=== PATIENT | female | born 1945 | race Caucasian/White ===

== ENCOUNTER 2017-03-27 04:27 | Emergency (ER) | payer MEDICARE, OTHER, MEDICAID ==
[~2017-03-27] VITALS: Ht 147.3 cm; Wt 77.2 kg
[~2017-03-27 04:27] MED LIST: DIAZ2TAB3 PO; LOPE-144 PO; MAGN296S50 PO; PANT20TA3 PO
[2017-03-27] MEDS ORDERED: ondansetron/PF 4mg/2ml inj IV ONE (05:15)
[2017-03-27] MEDS ORDERED: normal saline 1000ML IV soln IVB ONE (05:15)
[2017-03-27 05:24] LABS: BASOPHILS % (AUTO) 0.2 % (0-1); EOSINOPHILS # (AUTO) 0.1 X10'3 (0-0.9); HEMATOCRIT 39.8 % (35.0-45.0); HEMOGLOBIN 13.4 g/dl (12.0-16.0); LYMPHOCYTES # (AUTO) 1.3 X10'3 (1.1-4.8); LYMPHOCYTES % (AUTO) 13.1 % (21-51); MEAN CORPUSCULAR HGB CONC 33.8 % (33.0-36.5); MEAN CORPUSCULAR VOLUME 91.9 FL (78-98); MEAN PLATELET VOLUME 9.3 FL (7.4-10.4); MONOCYTES # (AUTO) 0.6 X10'3 (0-0.9); MONOCYTES % (AUTO) 5.5 % (2-12); NEUTROPHILS # (AUTO) 8.2 X10'3 (1.8-7.7); NEUTROPHILS % (AUTO) 80.2 % (42-75); PLATELET COUNT 208 X10'3 (140-440); RED BLOOD COUNT 4.33 X10'6 (4.20-5.60); RED CELL DISTRIBUTION WIDTH 13.3 % (11.5-14.5); WHITE BLOOD COUNT 10.3 X10'3 (4.5-11.0)
[2017-03-27 05:33] LABS: CLARITY,URINE Clear (Clear); COLOR,URINE Yellow (Yellow); GLUCOSE, URINE Negative (Neg); KETONES,URINE Negative (Neg); LEUKOCYTE ESTERASE ,URINE Large (Neg); NITRITES, URINE Negative (Neg); OCCULT BLOOD,URINE Negative (Neg); PH,URINE 7.5 (4.8-8.0); PROTEIN,URINE Negative (Neg)
[2017-03-27 05:36] LABS: ALANINE AMINOTRANSFERASE 18 U/L (12-78); ALBUMIN 3.6 G/DL (3.4-5.0); ALBUMIN/GLOBULIN RATIO 0.9 (1.1-1.5); ALKALINE PHOSPHATASE 123 IU/L (46-116); ANION GAP 5 (8-16); ASPARTATE AMINO TRANSFERASE 18 U/L (10-37); BILIRUBIN,TOTAL 0.5 MG/DL (0.1-1.0); BLOOD UREA NITROGEN 15 MG/DL (7-18); BUN/CREATININE RATIO 18.1 (6.6-38.0); CALCIUM 8.9 MG/DL (8.5-10.1); CHLORIDE 100 MMOL/L (99-107); CREATININE 0.83 MG/DL (0.40-0.90); GLUCOSE 121 MG/DL (70-104); LIPASE 153 U/L (73-393); POTASSIUM 3.7 MMOL/L (3.5-5.1); SODIUM 134 MMOL/L (135-145); TOTAL CARBON DIOXIDE 28.7 MMOL/L (24-32); TOTAL PROTEIN 7.6 G/DL (6.4-8.2); eGFR 68 ML/MIN
[2017-03-27 05:39] LABS: UA COLLECTION TYPE CLN CATCH MIDSTREAM
[2017-03-27 05:47] LABS: BACTERIA,URINE FEW /HPF (Neg); MUCUS STRANDS NONE SEEN /LPF (Neg); RBC,URINE 0-2 /HPF (0-2); SQUAMOUS EPITHELIAL CELL,UR MODERATE /LPF (FEW)
[2017-03-27] MEDS ORDERED: CefTRIAXone 2gm/NS 100ml IVPB 100 ML IV ONE (06:05)
[2017-03-27] MEDS ORDERED: METR500T PO (06:27)
[2017-03-27] MEDS ORDERED: CEPH-572 PO (06:27)
[2017-03-27 07:21] VITALS: BP 136/64
== END 2017-03-27 07:23 | disposition home or self-care (01) ==
LOC: ER 04:28
DX: N39.0 Urinary tract infection, site not specified (principal); K59.00 Constipation, unspecified; K57.32 Diverticulitis of large intestine without perforation or abscess without bleeding; I10 Essential (primary) hypertension; E11.9 Type 2 diabetes mellitus without complications; Z88.0 Allergy status to penicillin; Z88.1 Allergy status to other antibiotic agents; Z88.2 Allergy status to sulfonamides; Z91.018 Allergy to other foods
CPT/HCPCS: 36415; 74176; 80053; 81001; 83690; 84484; 85025; 87088; 96361; 96365; 96375; 99285; A6258; J0696; J2405; J7030

== ENCOUNTER 2017-04-09 15:45 | Emergency (ER) | payer MEDICARE, OTHER, MEDICAID ==
[~2017-04-09] VITALS: Ht 147.3 cm; Wt 74.0 kg
[2017-04-09 16:28] LABS: BASOPHILS % (AUTO) 0.4 % (0-1); EOSINOPHILS # (AUTO) 0.1 X10'3 (0-0.9); EOSINOPHILS % (AUTO) 1.8 % (0-6); HEMATOCRIT 39.8 % (35.0-45.0); HEMOGLOBIN 13.7 g/dl (12.0-16.0); LYMPHOCYTES # (AUTO) 1.6 X10'3 (1.1-4.8); LYMPHOCYTES % (AUTO) 28.4 % (21-51); MEAN CORPUSCULAR HEMOGLOBIN 31.1 PG (27.0-31.0); MEAN CORPUSCULAR HGB CONC 34.4 % (33.0-36.5); MEAN CORPUSCULAR VOLUME 90.3 FL (78-98); MEAN PLATELET VOLUME 8.9 FL (7.4-10.4); MONOCYTES # (AUTO) 0.3 X10'3 (0-0.9); MONOCYTES % (AUTO) 6.1 % (2-12); NEUTROPHILS # (AUTO) 3.6 X10'3 (1.8-7.7); NEUTROPHILS % (AUTO) 63.3 % (42-75); PLATELET COUNT 209 X10'3 (140-440); RED BLOOD COUNT 4.41 X10'6 (4.20-5.60); RED CELL DISTRIBUTION WIDTH 12.9 % (11.5-14.5); WHITE BLOOD COUNT 5.7 X10'3 (4.5-11.0)
[2017-04-09 16:37] LABS: PROTHROMBIN TIME 10.3 SECONDS (9.0-12.0)
[2017-04-09 16:45] LABS: ALANINE AMINOTRANSFERASE 19 U/L (12-78); ALBUMIN 3.8 G/DL (3.4-5.0); ALBUMIN/GLOBULIN RATIO 0.9 (1.1-1.5); ALKALINE PHOSPHATASE 87 IU/L (46-116); ANION GAP 9 (8-16); ASPARTATE AMINO TRANSFERASE 21 U/L (10-37); BILIRUBIN,TOTAL 0.7 MG/DL (0.1-1.0); BLOOD UREA NITROGEN 12 MG/DL (7-18); CHLORIDE 102 MMOL/L (99-107); GLUCOSE 111 MG/DL (70-104); LIPASE 143 U/L (73-393); SODIUM 141 MMOL/L (135-145); TOTAL CARBON DIOXIDE 29.7 MMOL/L (24-32); TOTAL PROTEIN 7.9 G/DL (6.4-8.2); eGFR 55 ML/MIN
[2017-04-09] MEDS ORDERED: piperacillin/tazo 3.375gm/50ml 50 ML IV ONE (16:55)
[2017-04-09 17:23] LABS: CLARITY,URINE Clear (Clear); COLOR,URINE Yellow (Yellow); GLUCOSE, URINE Negative (Neg); KETONES,URINE Negative (Neg); LEUKOCYTE ESTERASE ,URINE Negative (Neg); NITRITES, URINE Negative (Neg); OCCULT BLOOD,URINE Negative (Neg); PH,URINE 7.5 (4.8-8.0); PROTEIN,URINE Negative (Neg)
[2017-04-09 17:25] LABS: UA COLLECTION TYPE NON-SPECIFIED
[2017-04-09] MEDS ORDERED: AMOX-422 PO (18:14)
[2017-04-09 18:33] VITALS: BP 141/81
== END 2017-04-09 18:43 | disposition home or self-care (01) ==
LOC: ER 15:46
DX: K57.92 Diverticulitis of intestine, part unspecified, without perforation or abscess without bleeding (principal); I10 Essential (primary) hypertension; I25.10 Atherosclerotic heart disease of native coronary artery without angina pectoris; E11.9 Type 2 diabetes mellitus without complications; Z88.0 Allergy status to penicillin; Z88.2 Allergy status to sulfonamides; Z85.820 Personal history of malignant melanoma of skin; Z85.3 Personal history of malignant neoplasm of breast; Z88.1 Allergy status to other antibiotic agents; Z91.011 Allergy to milk products; Z91.018 Allergy to other foods; Z88.8 Allergy status to other drugs, medicaments and biological substances
CPT/HCPCS: 36415; 80053; 81003; 83690; 85025; 85610; 96365; 99284; J2543

== ENCOUNTER 2017-04-15 10:30 | Emergency (ER) | payer MEDICARE, OTHER, MEDICAID ==
[~2017-04-15] VITALS: Ht 147.3 cm; Wt 75.0 kg
[~2017-04-15 10:30] MED LIST changes: +AMOX-422 PO
[2017-04-15 11:24] LABS: CLARITY,URINE Clear (Clear); GLUCOSE, URINE Negative (Neg); KETONES,URINE Negative (Neg); LEUKOCYTE ESTERASE ,URINE Negative (Neg); NITRITES, URINE Negative (Neg); OCCULT BLOOD,URINE Negative (Neg); PROTEIN,URINE Negative (Neg); UROBILINOGEN,URINE 0.2 E.U/dL (0.2-1.0)
[2017-04-15 11:35] LABS: COLOR,URINE STRAW (Yellow); UA COLLECTION TYPE CLN CATCH MIDSTREAM
[2017-04-15 11:38] LABS: BASOPHILS # (AUTO) 0.1 X10'3 (0-0.2); BASOPHILS % (AUTO) 0.5 % (0-1); EOSINOPHILS # (AUTO) 0.1 X10'3 (0-0.9); EOSINOPHILS % (AUTO) 1.5 % (0-6); HEMOGLOBIN 14.1 g/dl (12.0-16.0); LYMPHOCYTES % (AUTO) 10.5 % (21-51); MEAN CORPUSCULAR HGB CONC 34.3 % (33.0-36.5); MEAN CORPUSCULAR VOLUME 90.3 FL (78-98); MEAN PLATELET VOLUME 9.1 FL (7.4-10.4); MONOCYTES # (AUTO) 0.5 X10'3 (0-0.9); NEUTROPHILS % (AUTO) 82.5 % (42-75); PLATELET COUNT 212 X10'3 (140-440); RED BLOOD COUNT 4.54 X10'6 (4.20-5.60); WHITE BLOOD COUNT 9.6 X10'3 (4.5-11.0)
[2017-04-15 11:52] LABS: ALANINE AMINOTRANSFERASE 18 U/L (12-78); ALBUMIN 3.9 G/DL (3.4-5.0); ALKALINE PHOSPHATASE 99 IU/L (46-116); ANION GAP 9 (8-16); ASPARTATE AMINO TRANSFERASE 18 U/L (10-37); BILIRUBIN,TOTAL 0.5 MG/DL (0.1-1.0); BLOOD UREA NITROGEN 12 MG/DL (7-18); CALCIUM 9.1 MG/DL (8.5-10.1); CHLORIDE 101 MMOL/L (99-107); GLUCOSE 114 MG/DL (70-104); POTASSIUM 4.2 MMOL/L (3.5-5.1); SODIUM 138 MMOL/L (135-145); TOTAL CARBON DIOXIDE 28.1 MMOL/L (24-32); TOTAL PROTEIN 7.7 G/DL (6.4-8.2); eGFR 55 ML/MIN
[2017-04-15] MEDS ORDERED: morphine 4 MG/ML inj SYRINge IV ONE (12:25)
[2017-04-15] MEDS ORDERED: ondansetron/PF 4mg/2ml inj IV ONE (13:45)
[2017-04-15] MEDS ORDERED: ondansetron 4mg rapidly disintigrating tab PO STA (14:00)
[2017-04-15] MEDS ORDERED: CIPR-230 PO (14:07)
[2017-04-15] MEDS ORDERED: AMOX-422 PO (14:07)
[2017-04-15 14:24] VITALS: BP 112/69
== END 2017-04-15 14:24 | disposition home or self-care (01) ==
LOC: ER 10:31
DX: K57.92 Diverticulitis of intestine, part unspecified, without perforation or abscess without bleeding (principal); E11.9 Type 2 diabetes mellitus without complications; G89.29 Other chronic pain; I25.10 Atherosclerotic heart disease of native coronary artery without angina pectoris; I10 Essential (primary) hypertension; Z88.2 Allergy status to sulfonamides; Z88.1 Allergy status to other antibiotic agents; Z79.899 Other long term (current) drug therapy; Z91.018 Allergy to other foods; Z85.3 Personal history of malignant neoplasm of breast; Z85.820 Personal history of malignant melanoma of skin
CPT/HCPCS: 36415; 74176; 80053; 81003; 85025; 85610; 99285

== ENCOUNTER 2017-04-19 16:51 | Emergency (ER) | payer MEDICARE, OTHER, MEDICAID ==
[~2017-04-19] VITALS: Ht 147.3 cm; Wt 74.1 kg
[~2017-04-19 16:51] MED LIST changes: +CIPR-230 PO
[2017-04-19] MEDS ORDERED: normal saline 1000ML IV soln IVB ONE (17:05)
[2017-04-19] MEDS ORDERED: ondansetron/PF 4mg/2ml inj IV ONE (17:05)
[2017-04-19 17:49] LABS: BASOPHILS % (AUTO) 0.2 % (0-1); EOSINOPHILS # (AUTO) 0.1 X10'3 (0-0.9); EOSINOPHILS % (AUTO) 1.7 % (0-6); HEMATOCRIT 38.7 % (35.0-45.0); HEMOGLOBIN 13.3 g/dl (12.0-16.0); LYMPHOCYTES # (AUTO) 1.2 X10'3 (1.1-4.8); LYMPHOCYTES % (AUTO) 22.4 % (21-51); MEAN CORPUSCULAR HEMOGLOBIN 31.2 PG (27.0-31.0); MEAN CORPUSCULAR HGB CONC 34.5 % (33.0-36.5); MEAN CORPUSCULAR VOLUME 90.5 FL (78-98); MEAN PLATELET VOLUME 9.7 FL (7.4-10.4); MONOCYTES # (AUTO) 0.1 X10'3 (0-0.9); MONOCYTES % (AUTO) 2.5 % (2-12); NEUTROPHILS % (AUTO) 73.2 % (42-75); PLATELET COUNT 180 X10'3 (140-440); RED BLOOD COUNT 4.27 X10'6 (4.20-5.60); RED CELL DISTRIBUTION WIDTH 12.7 % (11.5-14.5); WHITE BLOOD COUNT 5.5 X10'3 (4.5-11.0)
[2017-04-19 18:03] LABS: ALANINE AMINOTRANSFERASE 17 U/L (12-78); ALBUMIN 3.6 G/DL (3.4-5.0); ALKALINE PHOSPHATASE 87 IU/L (46-116); ANION GAP 10 (8-16); ASPARTATE AMINO TRANSFERASE 18 U/L (10-37); BILIRUBIN,TOTAL 0.7 MG/DL (0.1-1.0); BLOOD UREA NITROGEN 13 MG/DL (7-18); BUN/CREATININE RATIO 13.5 (6.6-38.0); CALCIUM 8.8 MG/DL (8.5-10.1); CHLORIDE 104 MMOL/L (99-107); CREATININE 0.96 MG/DL (0.40-0.90); GLUCOSE 112 MG/DL (70-104); LIPASE 108 U/L (73-393); POTASSIUM 3.5 MMOL/L (3.5-5.1); SODIUM 143 MMOL/L (135-145); TOTAL CARBON DIOXIDE 29.4 MMOL/L (24-32); TOTAL PROTEIN 7.1 G/DL (6.4-8.2); eGFR 57 ML/MIN
[2017-04-19 18:27] LABS: GLUCOSE, URINE NEGATIVE (Neg); KETONES,URINE NEGATIVE (Neg); LEUKOCYTE ESTERASE ,URINE NEGATIVE (Neg); NITRITES, URINE NEGATIVE (Neg); OCCULT BLOOD,URINE TRACE-INTACT (Neg); PROTEIN,URINE NEGATIVE (Neg); UROBILINOGEN,URINE 0.2 E.U/dL (0.2-1.0)
[2017-04-19 18:31] LABS: UA COLLECTION TYPE NON-SPECIFIED
[2017-04-19 18:40] LABS: BACTERIA,URINE NONE SEEN /HPF (Neg); RBC,URINE 0-2 /HPF (0-2); SQUAMOUS EPITHELIAL CELL,UR FEW /LPF (FEW); WBC,URINE 0-4 /HPF (0-4)
[2017-04-19 18:41] LABS: CLARITY,URINE Clear (Clear); COLOR,URINE STRAW (Yellow)
[2017-04-19] MEDS ORDERED: ONDA4TAB6 PO (18:49)
[2017-04-19 19:30] VITALS: BP 122/69
== END 2017-04-19 19:34 | disposition home or self-care (01) ==
LOC: ER 16:52
DX: R11.0 Nausea (principal); R53.1 Weakness; I10 Essential (primary) hypertension; E11.9 Type 2 diabetes mellitus without complications; G89.29 Other chronic pain; I25.10 Atherosclerotic heart disease of native coronary artery without angina pectoris; Z88.2 Allergy status to sulfonamides; Z88.1 Allergy status to other antibiotic agents; Z79.899 Other long term (current) drug therapy
CPT/HCPCS: 36415; 80053; 81001; 83690; 85025; 96361; 96374; 99284; J2405; J7030

== ENCOUNTER 2017-05-05 09:36 | Outpatient (CLI) | payer MEDICARE, OTHER, MEDICAID ==
[~2017-05-05] VITALS: Ht 147.3 cm; Wt 74.8 kg
[~2017-05-05 09:36] MED LIST changes: -AMOX-422 PO; +ONDA4TAB6 PO
[2017-05-05] MEDS ORDERED: LACT1CAP65 PO (10:58)
[2017-05-05] MEDS ORDERED: CYAN-19 PO (10:58)
[2017-05-05] MEDS ORDERED: HYDR-569 PO (10:58)
[2017-05-05 11:20] LABS: CLARITY,URINE CLEAR (Clear); COLOR,URINE STRAW (Yellow); GLUCOSE, URINE NEGATIVE (Neg); KETONES,URINE NEGATIVE (Neg); LEUKOCYTE ESTERASE ,URINE NEGATIVE (Neg); NITRITES, URINE NEGATIVE (Neg); OCCULT BLOOD,URINE TRACE-LYSED (Neg); PROTEIN,URINE NEGATIVE (Neg); UROBILINOGEN,URINE 0.2 E.U/dL (0.2-1.0)
[2017-05-05 11:27] LABS: UA COLLECTION TYPE NON-SPECIFIED
[2017-05-05 11:28] LABS: AMORPHOUS URATES 1+; BACTERIA,URINE NONE SEEN /HPF (Neg); RBC,URINE 0-2 /HPF (0-2); SQUAMOUS EPITHELIAL CELL,UR NONE SEEN /LPF (FEW); WBC,URINE NONE SEEN /HPF (0-4)
[2017-05-05 11:31] LABS: ALBUMIN 3.9 G/DL (3.4-5.0); ALKALINE PHOSPHATASE 119 IU/L (46-116); BLOOD UREA NITROGEN 13 MG/DL (7-18); BUN/CREATININE RATIO 14.6 (6.6-38.0); CALCIUM 9.1 MG/DL (8.5-10.1); CHLORIDE 100 MMOL/L (99-107); CREATININE 0.89 MG/DL (0.40-0.90); PRE OP ALT 17 U/L (30-65); PRE OP ANION GAP 8 (8-16); PRE OP AST 24 U/L (10-37); PRE OP BILIRUB, TOTAL 0.5 MG/DL (0.0-1.0); PRE OP GLUCOSE 125 MG/DL (70-104); PRE OP SODIUM 139 MMOL/L (135-145); TOTAL CARBON DIOXIDE 31.3 MMOL/L (24-32); TOTAL PROTEIN 7.9 G/DL (6.4-8.2); eGFR 63 ML/MIN
[2017-05-05 11:32] LABS: BASOPHILS % (AUTO) 0.2 % (0-1); EOSINOPHILS # (AUTO) 0.1 X10'3 (0-0.9); EOSINOPHILS % (AUTO) 1.4 % (0-6); LYMPHOCYTES # (AUTO) 0.9 X10'3 (1.1-4.8); LYMPHOCYTES % (AUTO) 10.6 % (21-51); MEAN CORPUSCULAR HEMOGLOBIN 31.3 PG (27.0-31.0); MEAN CORPUSCULAR HGB CONC 34.5 % (33.0-36.5); MEAN CORPUSCULAR VOLUME 90.6 FL (78-98); MEAN PLATELET VOLUME 9.6 FL (7.4-10.4); MONOCYTES # (AUTO) 0.3 X10'3 (0-0.9); MONOCYTES % (AUTO) 4.3 % (2-12); NEUTROPHILS # (AUTO) 6.8 X10'3 (1.8-7.7); NEUTROPHILS % (AUTO) 83.5 % (42-75); PRE OP HEMATOCRIT 40.6 % (35.0-45.0); PRE OP PLATELET COUNT 197 X10'3 (140-440); RED BLOOD COUNT 4.48 X10'6 (4.20-5.60); RED CELL DISTRIBUTION WIDTH 13.1 % (11.5-14.5)
[2017-05-05 11:38] LABS: PRE OP POTASSIUM 4.1 MMOL/L (3.4-5.1)
[2017-05-10] MEDS ORDERED: ringers solution, lacted 1,000 ML IV SCH (05:00)
[2017-05-10] MEDS ORDERED: ceFOXitin 2 GM ADDvantage bag 100 ML IV ONE (05:30)
[2017-05-10] MEDS ORDERED: famotidine 20mg tablet PO ONE (05:30)
[2017-05-10] MEDS ORDERED: midazolam 2 mg/2 ml injection ONE (07:30)
[2017-05-10] MEDS ORDERED: fentaNYL /PF 50mcg/ml 5ml ampule ONE (07:30)
[2017-05-10] MEDS ORDERED: ondansetron/PF 4mg/2ml inj ONE (08:19)
[2017-05-10] MEDS ORDERED: dexamethasone sod phosphate 4mg/ml inj. ONE (08:19)
[2017-05-10] MEDS ORDERED: LIDOcaine 2% (20mg/ml) 5ml vial ONE (08:20)
[2017-05-10] MEDS ORDERED: propofol inj 20 ML IV ONE (08:20)
[2017-05-10] MEDS ORDERED: rocuronium 10mg/ml inj IV ONE (08:20)
[2017-05-10] MEDS ORDERED: ePHEDrine 50MG/ML INJ. ONE (09:44)
[2017-05-10] MEDS ORDERED: meperidine/PF 50mg/ml syringe ONE (10:11)
== END 2017-05-05 23:59 | disposition home or self-care (01) ==
LOC: PRE-OP 09:36 → EDSTATUS 05-10 07:30
PROVIDERS: ATTEND Surgery
DX: Z01.818 Encounter for other preprocedural examination (principal); K57.32 Diverticulitis of large intestine without perforation or abscess without bleeding; I10 Essential (primary) hypertension
CPT/HCPCS: 36415; 80053; 81001; 85025; 86885; 86900; 86901; 87070; 93005; J7030; J7120

== ENCOUNTER 2017-05-07 06:55 | Inpatient (IN) | payer MEDICARE, OTHER, MEDICAID ==
[~2017-05-07] VITALS: Ht 147.3 cm; Wt 71.6 kg
[~2017-05-07 06:55] MED LIST changes: -CIPR-230 PO; +CYAN-19 PO; +HYDR-569 PO; +LACT1CAP65 PO; -LOPE-144 PO; -MAGN296S50 PO
[2017-05-07] MEDS ORDERED: ondansetron/PF 4mg/2ml inj IV ONE (08:05)
[2017-05-07] MEDS ORDERED: morphine 4 MG/ML inj SYRINge IV ONE (08:05)
[2017-05-07] MEDS ORDERED: normal saline 1000ML IV soln IVB ONE (08:05)
[2017-05-07 08:14] LABS: BASOPHILS % (AUTO) 0.3 % (0-1); EOSINOPHILS # (AUTO) 0.1 X10'3 (0-0.9); EOSINOPHILS % (AUTO) 1.3 % (0-6); HEMATOCRIT 41.3 % (35.0-45.0); HEMOGLOBIN 14.2 g/dl (12.0-16.0); LYMPHOCYTES # (AUTO) 1.1 X10'3 (1.1-4.8); LYMPHOCYTES % (AUTO) 13.1 % (21-51); MEAN CORPUSCULAR HGB CONC 34.4 % (33.0-36.5); MEAN CORPUSCULAR VOLUME 89.9 FL (78-98); MEAN PLATELET VOLUME 8.8 FL (7.4-10.4); MONOCYTES # (AUTO) 0.4 X10'3 (0-0.9); MONOCYTES % (AUTO) 4.7 % (2-12); NEUTROPHILS % (AUTO) 80.6 % (42-75); PLATELET COUNT 186 X10'3 (140-440); RED BLOOD COUNT 4.59 X10'6 (4.20-5.60); RED CELL DISTRIBUTION WIDTH 13.4 % (11.5-14.5); WHITE BLOOD COUNT 8.7 X10'3 (4.5-11.0)
[2017-05-07 08:32] LABS: ALANINE AMINOTRANSFERASE 22 U/L (12-78); ALBUMIN 3.9 G/DL (3.4-5.0); ALKALINE PHOSPHATASE 106 IU/L (46-116); ANION GAP 9 (8-16); ASPARTATE AMINO TRANSFERASE 21 U/L (10-37); BILIRUBIN,TOTAL 0.8 MG/DL (0.1-1.0); BLOOD UREA NITROGEN 11 MG/DL (7-18); BUN/CREATININE RATIO 13.9 (6.6-38.0); CALCIUM 9.2 MG/DL (8.5-10.1); CHLORIDE 101 MMOL/L (99-107); CREATININE 0.79 MG/DL (0.40-0.90); GLUCOSE 121 MG/DL (70-104); LIPASE 148 U/L (73-393); POTASSIUM 3.6 MMOL/L (3.5-5.1); SODIUM 140 MMOL/L (135-145); TOTAL CARBON DIOXIDE 29.9 MMOL/L (24-32); eGFR 72 ML/MIN
[2017-05-07] MEDS ORDERED: piperacillin/tazo 3.375gm/50ml 50 ML IV STA (09:08)
[2017-05-07] MEDS ORDERED: proCHLORperazine 10 MG/2 ml inj IV ONE (10:40)
[2017-05-07 10:48] LABS: CLARITY,URINE CLEAR (Clear); COLOR,URINE YELLOW (Yellow); GLUCOSE, URINE NEGATIVE (Neg); KETONES,URINE TRACE mg/dl (Neg); LEUKOCYTE ESTERASE ,URINE NEGATIVE (Neg); NITRITES, URINE NEGATIVE (Neg); OCCULT BLOOD,URINE TRACE-LYSED (Neg); PH,URINE 7.5 (4.8-8.0); PROTEIN,URINE NEGATIVE (Neg); UROBILINOGEN,URINE 0.2 E.U/dL (0.2-1.0)
[2017-05-07 10:53] LABS: UA COLLECTION TYPE CLN CATCH MIDSTREAM
[2017-05-07 10:54] LABS: BACTERIA,URINE FEW /HPF (Neg); MUCUS STRANDS FEW /LPF (Neg); RBC,URINE 0-2 /HPF (0-2); SQUAMOUS EPITHELIAL CELL,UR NONE SEEN /LPF (FEW); WBC,URINE 0-4 /HPF (0-4)
[2017-05-07] MEDS ORDERED: CHOL2000 PO (11:23)
[2017-05-07] MEDS ORDERED: ondansetron/PF 4mg/2ml inj IV PRN (11:50)
[2017-05-07] MEDS ORDERED: magnesium hydroxide 30ml (MOM) UD suspension PO PRN (11:50)
[2017-05-07] MEDS ORDERED: magnesium 2GM in 50ml NS 50 ML IV PRN (11:50)
[2017-05-07] MEDS ORDERED: acetaminophen 325mg tablet PO PRN (11:50)
[2017-05-07] MEDS ORDERED: bisacodyl 10mg suppository rectal RC PRN (11:50)
[2017-05-07] MEDS ORDERED: potassium Cl 20 mEq SR tablet PO PRN ×2 (11:50)
[2017-05-07] MEDS ORDERED: mag hydrox/Alum hydrox/simeth 30ml oral suspension PO PRN (11:50)
[2017-05-07] MEDS ORDERED: magnesium Cl slow-release 64mg tablet PO PRN (11:50)
[2017-05-07] MEDS ORDERED: HYDROmorphone inj. 0.5 MG/0.5 ML DISP.SYRIN IV PRN ×2 (11:50)
[2017-05-07] MEDS ORDERED: magnesium 4gm in 100ml NS 100 ML IV PRN (11:50)
[2017-05-07] MEDS ORDERED: potassium Cl 40MEQ/NS 500ml 500 ML IV PRN ×2 (11:50)
[2017-05-07] MEDS: normal saline 1000ml 1,000 ML IV SCH ×3 (12:50→21:25)
[2017-05-07] MEDS: enoxaparin 40mg/0.4ml syringe SUBCUT SCH (14:40)
[2017-05-07] MEDS: piperacillin/tazo 3.375gm/50ml 50 ML IV SCH ×2 (14:40→20:14)
[2017-05-07 17:00] VITALS: BP 121/63
[2017-05-07 19:00] VITALS: BP 125/54
[2017-05-07] MEDS: docusate sod 100mg capsule PO SCH (20:15)
[2017-05-08] VITALS: BP 127/58
[2017-05-08] MEDS: piperacillin/tazo 3.375gm/50ml 50 ML IV SCH ×4 (01:34→19:34)
[2017-05-08] MEDS: normal saline 1000ml 1,000 ML IV SCH ×3 (03:46→19:34)
[2017-05-08 07:23] LABS: ALANINE AMINOTRANSFERASE 17 U/L (12-78); ALBUMIN/GLOBULIN RATIO 0.9 (1.1-1.5); ALKALINE PHOSPHATASE 76 IU/L (46-116); ANION GAP 9 (8-16); ASPARTATE AMINO TRANSFERASE 21 U/L (10-37); BILIRUBIN,TOTAL 0.8 MG/DL (0.1-1.0); BLOOD UREA NITROGEN 5 MG/DL (7-18); BUN/CREATININE RATIO 6.1 (6.6-38.0); CALCIUM 8.3 MG/DL (8.5-10.1); CHLORIDE 109 MMOL/L (99-107); CREATININE 0.82 MG/DL (0.40-0.90); GLUCOSE 107 MG/DL (70-104); MAGNESIUM 1.9 MG/DL (1.5-2.4); POTASSIUM 4.4 MMOL/L (3.5-5.1); SODIUM 143 MMOL/L (135-145); TOTAL CARBON DIOXIDE 24.7 MMOL/L (24-32); TOTAL PROTEIN 6.3 G/DL (6.4-8.2); eGFR 69 ML/MIN
[2017-05-08 07:30] VITALS: BP 125/54
[2017-05-08] MEDS: K and/or MAG REPLACEMENT MC SCH (08:00)
[2017-05-08 08:02] LABS: BASOPHILS % (AUTO) 0.4 % (0-1); EOSINOPHILS # (AUTO) 0.1 X10'3 (0-0.9); EOSINOPHILS % (AUTO) 1.3 % (0-6); HEMATOCRIT 28.8 % (35.0-45.0); HEMOGLOBIN 9.9 g/dl (12.0-16.0); LYMPHOCYTES # (AUTO) 0.9 X10'3 (1.1-4.8); LYMPHOCYTES % (AUTO) 23.7 % (21-51); MEAN CORPUSCULAR HEMOGLOBIN 31.5 PG (27.0-31.0); MEAN CORPUSCULAR HGB CONC 34.5 % (33.0-36.5); MEAN CORPUSCULAR VOLUME 91.4 FL (78-98); MEAN PLATELET VOLUME 8.8 FL (7.4-10.4); MONOCYTES # (AUTO) 0.3 X10'3 (0-0.9); MONOCYTES % (AUTO) 6.6 % (2-12); NEUTROPHILS # (AUTO) 2.6 X10'3 (1.8-7.7); PLATELET COUNT 133 X10'3 (140-440); RED BLOOD COUNT 3.15 X10'6 (4.20-5.60); RED CELL DISTRIBUTION WIDTH 12.9 % (11.5-14.5); WHITE BLOOD COUNT 3.8 X10'3 (4.5-11.0)
[2017-05-08] MEDS: lactobacillus rhamnosus 10,000 MMU CELLS/CAPSULE PO SCH (09:39)
[2017-05-08] MEDS: vitamin D (cholecalciferol) 1,000 unit tablet PO SCH (09:39)
[2017-05-08] MEDS: enoxaparin 40mg/0.4ml syringe SUBCUT SCH (09:41)
[2017-05-08] MEDS: docusate sod 100mg capsule PO SCH ×2 (09:41→19:34)
[2017-05-08 11:00] VITALS: BP 114/55
[2017-05-08 19:00] VITALS: BP 139/59
[2017-05-09] VITALS: BP 130/56
[2017-05-09] MEDS: normal saline 1000ml 1,000 ML IV SCH ×4 (02:02→23:56)
[2017-05-09] MEDS: piperacillin/tazo 3.375gm/50ml 50 ML IV SCH ×4 (02:02→20:36)
[2017-05-09 05:18] LABS: BASOPHILS % (AUTO) 0.6 % (0-1); EOSINOPHILS # (AUTO) 0.1 X10'3 (0-0.9); EOSINOPHILS % (AUTO) 2.7 % (0-6); HEMATOCRIT 33.4 % (35.0-45.0); HEMOGLOBIN 11.5 g/dl (12.0-16.0); LYMPHOCYTES # (AUTO) 1.3 X10'3 (1.1-4.8); LYMPHOCYTES % (AUTO) 26.7 % (21-51); MEAN CORPUSCULAR HEMOGLOBIN 30.9 PG (27.0-31.0); MEAN CORPUSCULAR HGB CONC 34.4 % (33.0-36.5); MEAN PLATELET VOLUME 9.4 FL (7.4-10.4); MONOCYTES # (AUTO) 0.4 X10'3 (0-0.9); MONOCYTES % (AUTO) 7.6 % (2-12); NEUTROPHILS # (AUTO) 3.1 X10'3 (1.8-7.7); NEUTROPHILS % (AUTO) 62.4 % (42-75); PLATELET COUNT 162 X10'3 (140-440); RED BLOOD COUNT 3.71 X10'6 (4.20-5.60); RED CELL DISTRIBUTION WIDTH 13.1 % (11.5-14.5); WHITE BLOOD COUNT 4.9 X10'3 (4.5-11.0)
[2017-05-09 05:45] LABS: ANION GAP 10 (8-16); BILIRUBIN,TOTAL 0.7 MG/DL (0.1-1.0); BLOOD UREA NITROGEN 3 MG/DL (7-18); BUN/CREATININE RATIO 3.5 (6.6-38.0); CALCIUM 8.3 MG/DL (8.5-10.1); CHLORIDE 107 MMOL/L (99-107); CREATININE 0.86 MG/DL (0.40-0.90); GLUCOSE 102 MG/DL (70-104); MAGNESIUM 1.8 MG/DL (1.5-2.4); POTASSIUM 3.5 MMOL/L (3.5-5.1); SODIUM 144 MMOL/L (135-145); TOTAL CARBON DIOXIDE 27.4 MMOL/L (24-32); eGFR 65 ML/MIN
[2017-05-09 05:46] LABS: ALANINE AMINOTRANSFERASE 18 U/L (12-78); ALBUMIN 3.1 G/DL (3.4-5.0); ALBUMIN/GLOBULIN RATIO 0.9 (1.1-1.5); ALKALINE PHOSPHATASE 75 IU/L (46-116); ASPARTATE AMINO TRANSFERASE 17 U/L (10-37); TOTAL PROTEIN 6.4 G/DL (6.4-8.2)
[2017-05-09 07:32] VITALS: BP 135/64
[2017-05-09] MEDS: K and/or MAG REPLACEMENT MC SCH (08:00)
[2017-05-09] MEDS: docusate sod 100mg capsule PO SCH ×2 (08:00→20:00)
[2017-05-09] MEDS: enoxaparin 40mg/0.4ml syringe SUBCUT SCH (08:00)
[2017-05-09] MEDS ORDERED: PEG 3350/Na sulf,bicarb,Cl/KCl oral sol 4 liter bottle PO ONE (08:05)
[2017-05-09] MEDS: lactobacillus rhamnosus 10,000 MMU CELLS/CAPSULE PO SCH (08:50)
[2017-05-09] MEDS: vitamin D (cholecalciferol) 1,000 unit tablet PO SCH (08:51)
[2017-05-09 14:59] VITALS: BP 132/63
[2017-05-09 19:00] VITALS: BP 128/71
[2017-05-10] VITALS (19 sets, daily range): BP systolic 118–154; BP diastolic 57–86
[2017-05-10] MEDS: piperacillin/tazo 3.375gm/50ml 50 ML IV SCH ×4 (01:20→19:19)
[2017-05-10 05:17] LABS: BASOPHILS % (AUTO) 0.3 % (0-1); EOSINOPHILS # (AUTO) 0.1 X10'3 (0-0.9); EOSINOPHILS % (AUTO) 2.4 % (0-6); HEMATOCRIT 34.8 % (35.0-45.0); HEMOGLOBIN 11.9 g/dl (12.0-16.0); LYMPHOCYTES # (AUTO) 1.4 X10'3 (1.1-4.8); MEAN CORPUSCULAR VOLUME 91.1 FL (78-98); MEAN PLATELET VOLUME 9.1 FL (7.4-10.4); MONOCYTES # (AUTO) 0.4 X10'3 (0-0.9); NEUTROPHILS # (AUTO) 3.7 X10'3 (1.8-7.7); NEUTROPHILS % (AUTO) 66.3 % (42-75); PLATELET COUNT 163 X10'3 (140-440); RED BLOOD COUNT 3.82 X10'6 (4.20-5.60); RED CELL DISTRIBUTION WIDTH 13.2 % (11.5-14.5); WHITE BLOOD COUNT 5.6 X10'3 (4.5-11.0)
[2017-05-10 05:23] LABS: INR 1.1 INR; PARTIAL THROMBOPLASTIN TIME 28 SECONDS (22-32)
[2017-05-10 05:42] LABS: ALANINE AMINOTRANSFERASE 15 U/L (12-78); ALBUMIN 3.2 G/DL (3.4-5.0); ALBUMIN/GLOBULIN RATIO 0.9 (1.1-1.5); ALKALINE PHOSPHATASE 80 IU/L (46-116); ANION GAP 11 (8-16); ASPARTATE AMINO TRANSFERASE 22 U/L (10-37); BILIRUBIN,TOTAL 0.8 MG/DL (0.1-1.0); BLOOD UREA NITROGEN 2 MG/DL (7-18); BUN/CREATININE RATIO 2.4 (6.6-38.0); CALCIUM 8.5 MG/DL (8.5-10.1); CHLORIDE 107 MMOL/L (99-107); CREATININE 0.82 MG/DL (0.40-0.90); GLUCOSE 93 MG/DL (70-104); MAGNESIUM 1.6 MG/DL (1.5-2.4); POTASSIUM 3.3 MMOL/L (3.5-5.1); SODIUM 144 MMOL/L (135-145); TOTAL CARBON DIOXIDE 25.7 MMOL/L (24-32); TOTAL PROTEIN 6.7 G/DL (6.4-8.2); eGFR 69 ML/MIN
[2017-05-10] MEDS ORDERED: ceFAZolin 1000mg inj ONE (06:41)
[2017-05-10] MEDS ORDERED: BUPIVAcaine/PF 2.5 mg/ml (0.25%) 30ml vial ONE (06:41)
[2017-05-10] MEDS ORDERED: ringers solution, lacted 1,000 ML IV SCH (07:22)
[2017-05-10] MEDS ORDERED: ondansetron/PF 4mg/2ml inj ONE (07:24)
[2017-05-10] MEDS ORDERED: glycopyrrolate 0.2mg/ml inj ONE (07:24)
[2017-05-10] MEDS ORDERED: neostigmine methylsulfate 1 MG/ML 10ml vial ONE (07:24)
[2017-05-10] MEDS ORDERED: dexamethasone sod phosphate 4mg/ml inj. ONE (07:24)
[2017-05-10] MEDS ORDERED: desflurane 240ml liquid inh. IH ONE (07:24)
[2017-05-10] MEDS ORDERED: proCHLORperazine 10 MG/2 ml inj IV PRN (07:25)
[2017-05-10] MEDS ORDERED: meperidine/PF 50mg/ml syringe IV PRN ×2 (07:25)
[2017-05-10] MEDS ORDERED: morphine 2 MG/ML inj. syringe IV PRN ×2 (07:25)
[2017-05-10] MEDS ORDERED: acetaminophen 1,000mg/100ml IV 100 ML IV PRN (07:25)
[2017-05-10] MEDS ORDERED: ondansetron/PF 4mg/2ml inj IV PRN (07:25)
[2017-05-10] MEDS ORDERED: iohexol 300 MG/1 ML 10ml vial ONE (07:55)
[2017-05-10] MEDS ORDERED: iohexol 180mg/ml 20ml inj ONE (07:55)
[2017-05-10] MEDS ORDERED: iohexol 240mg/ml 10ml vial ONE (07:55)
[2017-05-10] MEDS ORDERED: iohexol 300 MG/1 ML 50ml polymer ONE (07:55)
[2017-05-10] MEDS: vitamin D (cholecalciferol) 1,000 unit tablet PO SCH (08:00)
[2017-05-10] MEDS: lactobacillus rhamnosus 10,000 MMU CELLS/CAPSULE PO SCH (08:00)
[2017-05-10] MEDS: meperidine/PF 50mg/ml syringe IV PRN ×2 (10:12→10:20)
[2017-05-10] MEDS: HYDROcodone/acetaminophen 10/325mg tab PO PRN (11:32)
[2017-05-10] MEDS: docusate sod 100mg capsule PO SCH ×2 (19:19→20:29)
[2017-05-10] MEDS: K and/or MAG REPLACEMENT MC SCH (20:27)
[2017-05-11] VITALS: BP 130/69
[2017-05-11] MEDS: normal saline 1000ml 1,000 ML IV SCH ×2 (01:04→08:37)
[2017-05-11] MEDS: HYDROcodone/acetaminophen 10/325mg tab PO PRN ×4 (01:14→17:21)
[2017-05-11] MEDS: piperacillin/tazo 3.375gm/50ml 50 ML IV SCH ×4 (02:27→20:36)
[2017-05-11 04:00] VITALS: BP 107/50
[2017-05-11 06:10] LABS: BASOPHILS % (AUTO) 0.1 % (0-1); EOSINOPHILS # (AUTO) 0.1 X10'3 (0-0.9); EOSINOPHILS % (AUTO) 0.9 % (0-6); HEMATOCRIT 32.5 % (35.0-45.0); HEMOGLOBIN 11.3 g/dl (12.0-16.0); LYMPHOCYTES % (AUTO) 9.9 % (21-51); MEAN CORPUSCULAR HEMOGLOBIN 31.3 PG (27.0-31.0); MEAN CORPUSCULAR HGB CONC 34.8 % (33.0-36.5); MEAN PLATELET VOLUME 9.4 FL (7.4-10.4); MONOCYTES # (AUTO) 0.6 X10'3 (0-0.9); NEUTROPHILS # (AUTO) 8.3 X10'3 (1.8-7.7); NEUTROPHILS % (AUTO) 83.1 % (42-75); PLATELET COUNT 165 X10'3 (140-440); RED BLOOD COUNT 3.61 X10'6 (4.20-5.60); RED CELL DISTRIBUTION WIDTH 13.1 % (11.5-14.5)
[2017-05-11 06:21] LABS: ALANINE AMINOTRANSFERASE 19 U/L (12-78); ALBUMIN 2.7 G/DL (3.4-5.0); ALBUMIN/GLOBULIN RATIO 0.8 (1.1-1.5); ALKALINE PHOSPHATASE 67 IU/L (46-116); ANION GAP 8 (8-16); ASPARTATE AMINO TRANSFERASE 24 U/L (10-37); BILIRUBIN,TOTAL 0.8 MG/DL (0.1-1.0); BLOOD UREA NITROGEN 7 MG/DL (7-18); BUN/CREATININE RATIO 8.5 (6.6-38.0); CALCIUM 8.2 MG/DL (8.5-10.1); CHLORIDE 101 MMOL/L (99-107); CREATININE 0.82 MG/DL (0.40-0.90); GLUCOSE 98 MG/DL (70-104); MAGNESIUM 1.5 MG/DL (1.5-2.4); SODIUM 136 MMOL/L (135-145); TOTAL CARBON DIOXIDE 26.8 MMOL/L (24-32); TOTAL PROTEIN 6.2 G/DL (6.4-8.2); eGFR 69 ML/MIN
[2017-05-11 08:00] VITALS: BP 130/60
[2017-05-11] MEDS: K and/or MAG REPLACEMENT MC SCH (08:00)
[2017-05-11] MEDS: vitamin D (cholecalciferol) 1,000 unit tablet PO SCH (08:37)
[2017-05-11] MEDS: docusate sod 100mg capsule PO SCH ×2 (08:37→20:35)
[2017-05-11] MEDS: lactobacillus rhamnosus 10,000 MMU CELLS/CAPSULE PO SCH (08:37)
[2017-05-11] MEDS ORDERED: dextrose 5%-1/2 normal saline 1,000 ML IV SCH (10:20)
[2017-05-11 11:00] VITALS: BP 143/84
[2017-05-11] MEDS: enoxaparin 40mg/0.4ml syringe SUBCUT SCH ×2 (12:00→12:43)
[2017-05-11] MEDS: benzocaine/menthol oral lozeng 1 EACH BOX MM PRN ×2 (12:41→15:16)
[2017-05-11] MEDS: pantoprazole 40 MG vial IV SCH (12:41)
[2017-05-11 20:00] VITALS: BP 137/60
[2017-05-12] VITALS: BP_SYST 139; BP_SYST 140; BP_DIAS 70; BP_DIAS 72
[2017-05-12] MEDS: piperacillin/tazo 3.375gm/50ml 50 ML IV SCH ×4 (01:59→21:07)
[2017-05-12 03:45] VITALS: BP 137/60
[2017-05-12 05:33] LABS: BASOPHILS % (AUTO) 0.2 % (0-1); EOSINOPHILS # (AUTO) 0.1 X10'3 (0-0.9); EOSINOPHILS % (AUTO) 0.8 % (0-6); HEMATOCRIT 32.4 % (35.0-45.0); HEMOGLOBIN 11.3 g/dl (12.0-16.0); MEAN CORPUSCULAR HEMOGLOBIN 31.3 PG (27.0-31.0); MEAN CORPUSCULAR HGB CONC 34.8 % (33.0-36.5); MEAN CORPUSCULAR VOLUME 89.9 FL (78-98); MEAN PLATELET VOLUME 9.1 FL (7.4-10.4); MONOCYTES # (AUTO) 0.5 X10'3 (0-0.9); MONOCYTES % (AUTO) 5.3 % (2-12); NEUTROPHILS # (AUTO) 8.3 X10'3 (1.8-7.7); NEUTROPHILS % (AUTO) 83.7 % (42-75); PLATELET COUNT 182 X10'3 (140-440); RED CELL DISTRIBUTION WIDTH 13.5 % (11.5-14.5); WHITE BLOOD COUNT 9.9 X10'3 (4.5-11.0)
[2017-05-12 06:17] LABS: ALANINE AMINOTRANSFERASE 19 U/L (12-78); ALBUMIN 2.9 G/DL (3.4-5.0); ALBUMIN/GLOBULIN RATIO 0.7 (1.1-1.5); ALKALINE PHOSPHATASE 70 IU/L (46-116); ANION GAP 10 (8-16); ASPARTATE AMINO TRANSFERASE 25 U/L (10-37); BILIRUBIN,TOTAL 0.7 MG/DL (0.1-1.0); BLOOD UREA NITROGEN 4 MG/DL (7-18); BUN/CREATININE RATIO 4.7 (6.6-38.0); CALCIUM 8.5 MG/DL (8.5-10.1); CHLORIDE 100 MMOL/L (99-107); CREATININE 0.86 MG/DL (0.40-0.90); GLUCOSE 114 MG/DL (70-104); MAGNESIUM 1.5 MG/DL (1.5-2.4); SODIUM 135 MMOL/L (135-145); TOTAL CARBON DIOXIDE 24.8 MMOL/L (24-32); TOTAL PROTEIN 6.8 G/DL (6.4-8.2); eGFR 65 ML/MIN
[2017-05-12] MEDS: vitamin D (cholecalciferol) 1,000 unit tablet PO SCH (07:37)
[2017-05-12] MEDS: pantoprazole 40 MG vial IV SCH (07:37)
[2017-05-12] MEDS: lactobacillus rhamnosus 10,000 MMU CELLS/CAPSULE PO SCH (07:37)
[2017-05-12] MEDS: docusate sod 100mg capsule PO SCH ×2 (07:38→21:07)
[2017-05-12] MEDS: HYDROcodone/acetaminophen 10/325mg tab PO PRN (07:38)
[2017-05-12 08:00] VITALS: BP 138/65
[2017-05-12] MEDS: enoxaparin 40mg/0.4ml syringe SUBCUT SCH (08:00)
[2017-05-12] MEDS: K and/or MAG REPLACEMENT MC SCH (08:00)
[2017-05-12 11:00] VITALS: BP 111/50
[2017-05-12 19:00] VITALS: BP 141/83
[2017-05-12] MEDS: HYDROcodone/acetaminophen 5mg/325mg tablet PO PRN (21:25)
[2017-05-13] VITALS: BP_SYST 123; BP_DIAS 57; BP_DIAS 72
[2017-05-13] MEDS: piperacillin/tazo 3.375gm/50ml 50 ML IV SCH ×4 (01:57→20:25)
[2017-05-13 08:00] VITALS: BP 141/75
[2017-05-13] MEDS: K and/or MAG REPLACEMENT MC SCH (08:00)
[2017-05-13] MEDS: enoxaparin 40mg/0.4ml syringe SUBCUT SCH (08:00)
[2017-05-13] MEDS: docusate sod 100mg capsule PO SCH ×2 (08:11→20:23)
[2017-05-13] MEDS: lactobacillus rhamnosus 10,000 MMU CELLS/CAPSULE PO SCH (08:11)
[2017-05-13] MEDS: vitamin D (cholecalciferol) 1,000 unit tablet PO SCH (08:11)
[2017-05-13] MEDS: pantoprazole 40mg Tablet.DR PO SCH (08:12)
[2017-05-13] MEDS: HYDROcodone/acetaminophen 5mg/325mg tablet PO PRN ×2 (08:25→21:00)
[2017-05-13 11:00] VITALS: BP 138/74
[2017-05-13 19:30] VITALS: BP 141/67
[2017-05-14] VITALS: BP 117/35
[2017-05-14] MEDS: piperacillin/tazo 3.375gm/50ml 50 ML IV SCH ×4 (02:10→21:12)
[2017-05-14] MEDS: HYDROcodone/acetaminophen 10/325mg tab PO PRN ×2 (05:36→16:16)
[2017-05-14 07:00] VITALS: BP 137/63
[2017-05-14] MEDS: enoxaparin 40mg/0.4ml syringe SUBCUT SCH (08:00)
[2017-05-14] MEDS: K and/or MAG REPLACEMENT MC SCH (08:00)
[2017-05-14] MEDS: vitamin D (cholecalciferol) 1,000 unit tablet PO SCH (09:25)
[2017-05-14] MEDS: lactobacillus rhamnosus 10,000 MMU CELLS/CAPSULE PO SCH (09:25)
[2017-05-14] MEDS ORDERED: diazepam 5mg tablet PO PRN (09:25)
[2017-05-14] MEDS: pantoprazole 40mg Tablet.DR PO SCH (09:25)
[2017-05-14] MEDS: docusate sod 100mg capsule PO SCH ×2 (09:25→21:11)
[2017-05-14 14:34] VITALS: BP 126/57
[2017-05-14 19:56] VITALS: BP 132/58
[2017-05-14 23:30] VITALS: BP 124/62
[2017-05-15] MEDS: piperacillin/tazo 3.375gm/50ml 50 ML IV SCH ×2 (02:33→07:46)
[2017-05-15] MEDS: HYDROcodone/acetaminophen 10/325mg tab PO PRN (02:43)
[2017-05-15 07:00] VITALS: BP 135/76
[2017-05-15] MEDS ORDERED: TRAM50TA2 PO (07:27)
[2017-05-15] MEDS: HYDROcodone/acetaminophen 5mg/325mg tablet PO PRN (09:22)
== END 2017-05-15 09:43 | disposition home or self-care (01) | DRG 330 ==
LOC: ER 06:56 → ED HOLD 11:50 → EDBEDREQ 15:07 → SUR 3N 16:25
PROVIDERS: ADMIT Internal Medicine; ATTEND Surgery
PROC: 0T788DZ Dilation of Bilateral Ureters with Intraluminal Device, Via Natural or Artificial Opening Endoscopic (ICD-10-PCS; 2017-05-10)
PROC: BT141ZZ Fluoroscopy of Kidneys, Ureters and Bladder using Low Osmolar Contrast (ICD-10-PCS; 2017-05-10)
PROC: 0DNU4ZZ Release Omentum, Percutaneous Endoscopic Approach (ICD-10-PCS; 2017-05-10)
PROC: 0DTN4ZZ Resection of Sigmoid Colon, Percutaneous Endoscopic Approach (ICD-10-PCS; principal; 2017-05-10 07:24)
PROC: 0DNW4ZZ Release Peritoneum, Percutaneous Endoscopic Approach (ICD-10-PCS; 2017-05-10 07:24)
DX: K57.92 Diverticulitis of intestine, part unspecified, without perforation or abscess without bleeding (principal); D62 Acute posthemorrhagic anemia; E11.9 Type 2 diabetes mellitus without complications; E66.9 Obesity, unspecified; I10 Essential (primary) hypertension; K59.00 Constipation, unspecified; G89.29 Other chronic pain; M54.9 Dorsalgia, unspecified; E78.5 Hyperlipidemia, unspecified; K66.0 Peritoneal adhesions (postprocedural) (postinfection); F32.9 Major depressive disorder, single episode, unspecified; Z60.2 Problems related to living alone; Z90.11 Acquired absence of right breast and nipple; Z88.1 Allergy status to other antibiotic agents; Z91.018 Allergy to other foods; Z88.2 Allergy status to sulfonamides; Z88.8 Allergy status to other drugs, medicaments and biological substances; Z91.048 Other nonmedicinal substance allergy status; Z79.899 Other long term (current) drug therapy; Z85.3 Personal history of malignant neoplasm of breast; Z85.820 Personal history of malignant melanoma of skin; Z83.3 Family history of diabetes mellitus; Z80.9 Family history of malignant neoplasm, unspecified; Z82.49 Family history of ischemic heart disease and other diseases of the circulatory system; Z68.33 Body mass index [BMI] 33.0-33.9, adult
CPT/HCPCS: 36415; 71045; 76000; 80053; 81001; 83690; 83735; 84132; 85025; 85610; 85730; 87070; 88307; 93005; 96365; 96375; 97162; 99285; A4357; A4402; A7000; C1758; C9113; J0690; J0780; J1100; J1170; J1650; J2270; J2405; J2543; J2710; J3480; J3490; J7030; J7120; Q9965; Q9966; Q9967

== ENCOUNTER 2018-04-11 11:24 | Emergency (ER) | payer MEDICARE, OTHER, MEDICAID ==
[~2018-04-11] VITALS: Ht 147.3 cm; Wt 74.5 kg
[~2018-04-11 11:24] MED LIST changes: +CHOL2000 PO; -CYAN-19 PO; -DIAZ2TAB3 PO; -HYDR-569 PO; -ONDA4TAB6 PO; -PANT20TA3 PO
--- NOTE | 2018-04-11 12:19 | NUR ---
Pt took Doxycycline Monday approx 1430 hours.
[2018-04-11] MEDS ORDERED: ALBU8HFA PO (13:09)
[2018-04-11] MEDS ORDERED: PRED20TA PO (13:09)
[2018-04-11 13:37] VITALS: BP 166/85
== END 2018-04-11 13:39 | disposition home or self-care (01) ==
LOC: ER 11:25
DX: J34.89 Other specified disorders of nose and nasal sinuses (principal); J20.9 Acute bronchitis, unspecified; J22 Unspecified acute lower respiratory infection; I10 Essential (primary) hypertension; E11.9 Type 2 diabetes mellitus without complications; G89.29 Other chronic pain; Z85.3 Personal history of malignant neoplasm of breast; Z98.890 Other specified postprocedural states; Z60.2 Problems related to living alone; Z88.2 Allergy status to sulfonamides; Z88.1 Allergy status to other antibiotic agents; Z88.8 Allergy status to other drugs, medicaments and biological substances; Z91.018 Allergy to other foods; Z91.011 Allergy to milk products; Z79.899 Other long term (current) drug therapy
CPT/HCPCS: 71046; 99283

== ENCOUNTER 2018-06-20 16:42 | Inpatient (IN) | payer MEDICARE, OTHER, MEDICAID | END 2018-06-22 15:45 | disposition home or self-care (01) | LOC: ED HOLD 06-21 01:04 → ER 16:42 → ORTHO 4S 06-21 01:10 | DX: J18.1 Lobar pneumonia, unspecified organism (principal); I10 Essential (primary) hypertension; E11.9 Type 2 diabetes mellitus without complications ==

== ENCOUNTER 2018-07-29 10:41 | Emergency (ER) | payer MEDICARE, OTHER ==
[~2018-07-29] VITALS: Ht 147.3 cm; Wt 67.7 kg
[~2018-07-29 10:41] MED LIST changes: +CARV-49 PO; +DIAZ2TAB3; +DOXY-224 PO; +PANT20TA3 PO
[2018-07-29 11:16] LABS: BASOPHILS % (AUTO) 0.3 % (0-1); EOSINOPHILS % (AUTO) 0.5 % (0-6); HEMATOCRIT 41.9 % (35.0-45.0); HEMOGLOBIN 14.4 g/dl (12.0-16.0); LYMPHOCYTES % (AUTO) 16.7 % (21-51); MEAN CORPUSCULAR HEMOGLOBIN 30.7 PG (27.0-31.0); MEAN CORPUSCULAR HGB CONC 34.3 g/dL (33.0-36.5); MEAN CORPUSCULAR VOLUME 89.5 FL (78-98); MEAN PLATELET VOLUME 9.4 FL (7.4-10.4); MONOCYTES # (AUTO) 0.4 X10'3 (0-0.9); MONOCYTES % (AUTO) 6.2 % (2-12); NEUTROPHILS # (AUTO) 4.5 X10'3 (1.8-7.7); NEUTROPHILS % (AUTO) 76.3 % (42-75); PLATELET COUNT 252 X10'3 (140-440); RED BLOOD COUNT 4.68 X10'6 (4.20-5.60); RED CELL DISTRIBUTION WIDTH 12.8 % (11.5-14.5); WHITE BLOOD COUNT 5.9 X10'3 (4.5-11.0)
[2018-07-29 11:33] LABS: ALANINE AMINOTRANSFERASE 17 U/L (12-78); ALBUMIN 3.8 G/DL (3.4-5.0); ALBUMIN/GLOBULIN RATIO 0.8 (1.1-1.5); ALKALINE PHOSPHATASE 147 IU/L (46-116); ANION GAP 7 (8-16); ASPARTATE AMINO TRANSFERASE 42 U/L (10-37); BILIRUBIN,TOTAL 0.7 MG/DL (0.1-1.0); BLOOD UREA NITROGEN 10 MG/DL (7-18); CALCIUM 9.7 MG/DL (8.5-10.1); CHLORIDE 98 MMOL/L (99-107); CREATININE 0.77 MG/DL (0.40-0.90); GLUCOSE 106 MG/DL (70-104); POTASSIUM 4.6 MMOL/L (3.5-5.1); SODIUM 137 MMOL/L (135-145); TOTAL CARBON DIOXIDE 31.7 MMOL/L (24-32); TOTAL PROTEIN 8.4 G/DL (6.4-8.2); eGFR 73 ML/MIN
[2018-07-29] MEDS ORDERED: aspirin 81mg tab.chew PO ONE (12:00)
[2018-07-29] MEDS ORDERED: nitroGLYCERIN 0.4mg SUBLingual tab SL PRN (12:00)
[2018-07-29 13:09] VITALS: BP 144/85
== END 2018-07-29 13:12 | disposition home or self-care (01) ==
LOC: ER 10:42
DX: C78.00 Secondary malignant neoplasm of unspecified lung (principal); C79.51 Secondary malignant neoplasm of bone; C50.919 Malignant neoplasm of unspecified site of unspecified female breast; J90 Pleural effusion, not elsewhere classified; I10 Essential (primary) hypertension; E11.9 Type 2 diabetes mellitus without complications; G89.29 Other chronic pain; Z98.890 Other specified postprocedural states; Z60.2 Problems related to living alone; Z88.2 Allergy status to sulfonamides; Z88.8 Allergy status to other drugs, medicaments and biological substances; Z88.1 Allergy status to other antibiotic agents; Z91.018 Allergy to other foods; Z79.899 Other long term (current) drug therapy
CPT/HCPCS: 36415; 71046; 80053; 83605; 84484; 85025; 87040; 93005; 99284

== ENCOUNTER 2018-08-08 08:54 | Day surgery (SDC) | payer MEDICARE, OTHER ==
[~2018-08-08] VITALS: Ht 149.9 cm; Wt 66.3 kg
[2018-08-08] MEDS ORDERED: LIDOcaine 1% 30ml preserv. free vial IJ STA (09:23)
[2018-08-08] MEDS ORDERED: DOCU100C41 PO (10:01)
[2018-08-08] MEDS ORDERED: CETI10CA PO (10:01)
[2018-08-08] MEDS ORDERED: MAGN400C PO (10:01)
[2018-08-08] MEDS ORDERED: VITA1TAB20 PO (10:01)
[2018-08-08] MEDS ORDERED: POLY119P5 PO (10:01)
[2018-08-08] MEDS ORDERED: ACET-2119 PO (10:01)
[2018-08-08 10:25] VITALS: BP 113/78
[2018-08-08] MEDS ORDERED: ondansetron 4mg rapidly disintigrating tab PO ONE (10:55)
== END 2018-08-08 10:45 | disposition home or self-care (01) ==
LOC: SSTAY O 08:54
PROVIDERS: ATTEND Radiology Vascular & Interventional Radiology
DX: J90 Pleural effusion, not elsewhere classified (principal); Z53.8 Procedure and treatment not carried out for other reasons; I10 Essential (primary) hypertension; Z90.49 Acquired absence of other specified parts of digestive tract; Z98.890 Other specified postprocedural states; Z90.11 Acquired absence of right breast and nipple; Z90.721 Acquired absence of ovaries, unilateral; Z85.3 Personal history of malignant neoplasm of breast; Z79.899 Other long term (current) drug therapy; Z88.2 Allergy status to sulfonamides; Z88.8 Allergy status to other drugs, medicaments and biological substances; Z88.1 Allergy status to other antibiotic agents; Z91.018 Allergy to other foods; Z91.048 Other nonmedicinal substance allergy status; Z91.09 Other allergy status, other than to drugs and biological substances; Z82.49 Family history of ischemic heart disease and other diseases of the circulatory system; Z83.3 Family history of diabetes mellitus; Z80.8 Family history of malignant neoplasm of other organs or systems
CPT/HCPCS: 76604; J3490